=== PATIENT | female | born 1985 | race Caucasian/White ===

== ENCOUNTER → 2016-06-04 | Outpatient (CLI) | payer BC ==
[~2016-06-04] MED LIST: LEVO150T67 PO; LORA-441 PO; ULT50 PO
[2016-06-04 13:53] LABS: INR 1.52; PROTIME 18.4 Sec (12.2-14.2); PT RATIO 1.4
== END | disposition home or self-care (01) ==
LOC: LAB 12:57
PROVIDERS: ATTEND Internal Medicine
DX: D68.59 Other primary thrombophilia (principal)
CPT/HCPCS: 85610

== ENCOUNTER → 2016-06-04 | Outpatient (CLI) | payer BC ==
[2016-06-04 13:44] LABS: BASOPHILS % 0.6 % (0.0-2.0); EOSINOPHILS # 0.1 10^3/ul (0.0-0.5); EOSINOPHILS % 4.7 % (0.0-7.0); HEMATOCRIT 35.2 % (37.0-47.0); HEMOGLOBIN 11.8 g/dl (12.0-16.0); LYMPHOCYTES # 1.1 10^3/ul (0.8-2.9); LYMPHOCYTES % 38.1 % (15.0-51.0); MEAN CORPUSCULAR HEMOGLOBIN 28.8 pg (29.0-33.0); MEAN CORPUSCULAR HGB CONC 33.4 g/dl (32.0-37.0); MEAN CORPUSCULAR VOLUME 86.2 fl (82.0-101.0); MONOCYTE # 0.4 10^3/ul (0.3-0.9); MONOCYTES % 13.5 % (0.0-11.0); NEUTROPHIL # 1.2 10^3/ul (1.6-7.5); NEUTROPHILS % 43.1 % (39.0-77.0); PLATELET COUNT 181 10^3/UL (140-440); RED BLOOD COUNT 4.08 10^6/ul (4.20-5.40); RED CELL DISTRIBUTION WIDTH 15.2 % (11.5-14.5); UNCORRECTED WBC 2.9 10^3/ul (4.8-10.8); WHITE BLOOD COUNT 2.9 10^3/ul (4.8-10.8)
[2016-06-04 13:53] LABS: ALBUMIN 4.3 g/dl (3.3-4.9); CHLORIDE 102 mmol/L (97-110); CONDITION 1; LH ANALYZER COMMENTS 1
[2016-06-04 13:54] LABS: POTASSIUM 4.1 mmol/L (3.5-5.1); SODIUM 142 mmol/L (135-144)
[2016-06-04 13:59] LABS: ADD UMIC YES; URINE BILIRUBIN (Dip) NEGATIVE (NEGATIVE); URINE BLOOD (Dip) 3+ (NEGATIVE); URINE COLOR LT. YELLOW (YELLOW); URINE GLUCOSE (Dip) NEGATIVE (NEGATIVE); URINE KETONES (Dip) NEGATIVE (NEGATIVE); URINE LEUKOCYTE ESTERASE (Dip) NEGATIVE (NEGATIVE); URINE NITRITE (Dip) NEGATIVE (NEGATIVE); URINE TOTAL PROTEIN (Dip) NEGATIVE (NEGATIVE); URINE UROBILINOGEN (Dip) 0.2 E.U./dL (0.1-1.0)
[2016-06-04 14:04] LABS: COMPLEMENT C3 97 mg/dl (88-165)
[2016-06-04 14:11] LABS: SQUAMOUS EPITHELIAL CELL,UR OCCASIONAL; URINE RBCS 0-2 /HPF ([, 0])
[2016-06-04 14:33] LABS: C-REACTIVE PROTEIN 0.8 mg/dl (0.0-0.9)
[2016-06-04 14:35] LABS: CARBON DIOXIDE 25 mmol/L (21-31)
[2016-06-04 14:36] LABS: ALANINE AMINOTRANSFERASE 42 IU/L (13-69); ALBUMIN/GLOBULIN RATIO 0.72; ALKALINE PHOSPHATASE 85 IU/L (42-121); ANION GAP 19 (8-16); ASPARTATE AMINO TRANSFERASE 35 IU/L (15-46); BILIRUBIN,INDIRECT 0.1 mg/dl (0-1.1); BILIRUBIN,TOTAL 0.1 mg/dl (0.2-1.3); BLOOD UREA NITROGEN 7 mg/dl (7-20); CALCIUM 9.4 mg/dl (8.4-10.2); COMPLEMENT C4 < 8 mg/dl (14-44); CREATININE 0.51 mg/dl (0.44-1.00); GLUCOSE 91 mg/dl (70-220); TOTAL PROTEIN 10.2 g/dl (6.1-8.1)
[2016-06-05 11:56] LABS: MYELOPEROXIDASE ANTIBODY <1.0 AI; PROTEINASE-3 ANTIBODY <1.0 AI
== END | disposition home or self-care (01) ==
LOC: LAB 13:01
PROVIDERS: ATTEND Specialist
DX: M32.9 Systemic lupus erythematosus, unspecified (principal); B19.20 Unspecified viral hepatitis C without hepatic coma
CPT/HCPCS: 80053; 81001; 81003; 85025; 85651; 86021; 86140; 86160; 86226; 86235; 86430; 86803; 87340

== ENCOUNTER → 2016-06-16 | Outpatient (CLI) | payer BC ==
[~2016-06-16] MED LIST changes: +TRAM50TA2 PO; -ULT50 PO
[2016-06-16 09:33] LABS: BASOPHILS % 0.3 % (0.0-2.0); EOSINOPHILS % 0.2 % (0.0-7.0); HEMATOCRIT 35.2 % (37.0-47.0); HEMOGLOBIN 11.5 g/dl (12.0-16.0); LYMPHOCYTES # 1.1 10^3/ul (0.8-2.9); LYMPHOCYTES % 15.3 % (15.0-51.0); MEAN CORPUSCULAR HEMOGLOBIN 28.2 pg (29.0-33.0); MEAN CORPUSCULAR HGB CONC 32.7 g/dl (32.0-37.0); MEAN CORPUSCULAR VOLUME 86.4 fl (82.0-101.0); MEAN PLATELET VOLUME 8.5 fl (7.4-10.4); MONOCYTE # 0.3 10^3/ul (0.3-0.9); MONOCYTES % 4.3 % (0.0-11.0); NEUTROPHIL # 5.6 10^3/ul (1.6-7.5); NEUTROPHILS % 79.9 % (39.0-77.0); PLATELET COUNT 213 10^3/UL (140-440); RED BLOOD COUNT 4.07 10^6/ul (4.20-5.40); RED CELL DISTRIBUTION WIDTH 14.7 % (11.5-14.5)
[2016-06-16 09:41] LABS: CONDITION 1; LH ANALYZER COMMENTS 1
[2016-06-16 09:48] LABS: INR 3.34; PROTIME 34.4 Sec (12.2-14.2); PT RATIO 2.7
[2016-06-16 09:54] LABS: POTASSIUM 3.9 mmol/L (3.5-5.1)
[2016-06-16 09:55] LABS: CREATININE 0.52 mg/dl (0.44-1.00)
[2016-06-16 09:56] LABS: BILIRUBIN,INDIRECT 0.2 mg/dl (0-1.1); BILIRUBIN,TOTAL 0.2 mg/dl (0.2-1.3)
[2016-06-16 09:57] LABS: ALBUMIN/GLOBULIN RATIO 0.72; CALCIUM 9.1 mg/dl (8.4-10.2); TOTAL PROTEIN 9.5 g/dl (6.1-8.1)
[2016-06-16 09:59] LABS: C-REACTIVE PROTEIN 1.1 mg/dl (0.0-0.9)
[2016-06-16 10:01] LABS: ADD UMIC YES; URINE BILIRUBIN (Dip) NEGATIVE (NEGATIVE); URINE BLOOD (Dip) TRACE (NEGATIVE); URINE COLOR LT. YELLOW (YELLOW); URINE GLUCOSE (Dip) NEGATIVE (NEGATIVE); URINE KETONES (Dip) NEGATIVE (NEGATIVE); URINE LEUKOCYTE ESTERASE (Dip) 1+ (NEGATIVE); URINE NITRITE (Dip) NEGATIVE (NEGATIVE); URINE TOTAL PROTEIN (Dip) NEGATIVE (NEGATIVE); URINE UROBILINOGEN (Dip) 0.2 E.U./dL (0.1-1.0)
== END | disposition home or self-care (01) ==
LOC: LAB 08:59
PROVIDERS: ATTEND Specialist
DX: D68.59 Other primary thrombophilia (principal)
CPT/HCPCS: 80053; 81001; 81003; 83036; 85025; 85610; 85651; 86140

== ENCOUNTER → 2016-07-13 | Outpatient (CLI) | payer BC ==
[2016-07-13 12:08] LABS: BASOPHILS % 0.5 % (0.0-2.0); EOSINOPHILS % 0.8 % (0.0-7.0); HEMATOCRIT 34.6 % (37.0-47.0); HEMOGLOBIN 11.4 g/dl (12.0-16.0); LYMPHOCYTES # 1.1 10^3/ul (0.8-2.9); LYMPHOCYTES % 26.1 % (15.0-51.0); MEAN CORPUSCULAR HEMOGLOBIN 28.5 pg (29.0-33.0); MEAN CORPUSCULAR HGB CONC 33.1 g/dl (32.0-37.0); MEAN CORPUSCULAR VOLUME 86.1 fl (82.0-101.0); MEAN PLATELET VOLUME 9.4 fl (7.4-10.4); MONOCYTE # 0.7 10^3/ul (0.3-0.9); MONOCYTES % 16.2 % (0.0-11.0); NEUTROPHIL # 2.4 10^3/ul (1.6-7.5); NEUTROPHILS % 56.4 % (39.0-77.0); PLATELET COUNT 195 10^3/UL (140-440); RED BLOOD COUNT 4.01 10^6/ul (4.20-5.40); RED CELL DISTRIBUTION WIDTH 14.3 % (11.5-14.5); UNCORRECTED WBC 4.2 10^3/ul (4.8-10.8); WHITE BLOOD COUNT 4.2 10^3/ul (4.8-10.8)
[2016-07-13 12:09] LABS: ALBUMIN 3.5 g/dl (3.3-4.9); POTASSIUM 3.6 mmol/L (3.5-5.1)
[2016-07-13 12:11] LABS: CREATININE 0.63 mg/dl (0.44-1.00)
[2016-07-13 12:12] LABS: ALBUMIN/GLOBULIN RATIO 0.92; CALCIUM 8.8 mg/dl (8.4-10.2); CONDITION 1; LH ANALYZER COMMENTS 1; TOTAL PROTEIN 7.3 g/dl (6.1-8.1)
[2016-07-13 12:15] LABS: C-REACTIVE PROTEIN 0.8 mg/dl (0.0-0.9)
[2016-07-13 13:37] LABS: ADD UMIC YES; URINE BILIRUBIN (Dip) NEGATIVE (NEGATIVE); URINE BLOOD (Dip) TRACE (NEGATIVE); URINE COLOR LT. YELLOW (YELLOW); URINE GLUCOSE (Dip) NEGATIVE (NEGATIVE); URINE KETONES (Dip) NEGATIVE (NEGATIVE); URINE LEUKOCYTE ESTERASE (Dip) 1+ (NEGATIVE); URINE NITRITE (Dip) NEGATIVE (NEGATIVE); URINE TOTAL PROTEIN (Dip) NEGATIVE (NEGATIVE); URINE UROBILINOGEN (Dip) 0.2 E.U./dL (0.1-1.0)
[2016-07-13 13:54] LABS: BACTERIA,URINE FEW; URINE RBCS 0-2 /HPF (0)
== END | disposition home or self-care (01) ==
LOC: LAB 11:16
PROVIDERS: ATTEND Specialist
DX: M32.9 Systemic lupus erythematosus, unspecified (principal)
CPT/HCPCS: 80053; 81001; 81003; 83036; 85025; 85651; 86140

== ENCOUNTER → 2016-08-29 | Outpatient (CLI) | payer BC ==
[2016-08-29 12:16] LABS: ADD SCAN DIFF NO
[2016-08-29 12:26] LABS: BASOPHILS % 0.5 % (0.0-2.0); HEMATOCRIT 36.8 % (37.0-47.0); HEMOGLOBIN 11.3 g/dl (12.0-16.0); LYMPHOCYTES # 1.2 10^3/ul (0.8-2.9); MEAN CORPUSCULAR HEMOGLOBIN 26.6 pg (29.0-33.0); MEAN CORPUSCULAR HGB CONC 30.7 g/dl (32.0-37.0); MEAN CORPUSCULAR VOLUME 86.6 fl (82.0-101.0); MEAN PLATELET VOLUME 11.9 fl (7.4-10.4); MONOCYTE # 0.6 10^3/ul (0.3-0.9); MONOCYTES % 15.9 % (0.0-11.0); NEUTROPHILS % 51.3 % (39.0-77.0); PLATELET COUNT 190 10^3/UL (140-415); RED BLOOD COUNT 4.25 10^6/ul (4.20-5.40); RED CELL DISTRIBUTION WIDTH 14.8 % (11.5-14.5); WHITE BLOOD COUNT 3.9 10^3/ul (4.8-10.8)
[2016-08-29 12:35] LABS: ALBUMIN/GLOBULIN RATIO 0.88; BILIRUBIN,INDIRECT 0.1 mg/dl (0-1.1); BILIRUBIN,TOTAL 0.1 mg/dl (0.2-1.3); CALCIUM 8.6 mg/dl (8.4-10.2); CREATININE 0.56 mg/dl (0.44-1.00); POTASSIUM 3.2 mmol/L (3.5-5.1); TOTAL PROTEIN 8.5 g/dl (6.1-8.1)
[2016-08-29 13:03] LABS: ADD UMIC YES; URINE BILIRUBIN (Dip) NEGATIVE (NEGATIVE); URINE BLOOD (Dip) TRACE (NEGATIVE); URINE COLOR LT. YELLOW (YELLOW); URINE GLUCOSE (Dip) NEGATIVE (NEGATIVE); URINE KETONES (Dip) NEGATIVE (NEGATIVE); URINE LEUKOCYTE ESTERASE (Dip) NEGATIVE (NEGATIVE); URINE NITRITE (Dip) NEGATIVE (NEGATIVE); URINE TOTAL PROTEIN (Dip) NEGATIVE (NEGATIVE); URINE UROBILINOGEN (Dip) 0.2 E.U./dL (0.1-1.0)
[2016-08-29 13:20] LABS: URINE RBCS 0-2 /HPF (0)
== END | disposition home or self-care (01) ==
LOC: LAB 11:35
PROVIDERS: ATTEND Internal Medicine
DX: M32.9 Systemic lupus erythematosus, unspecified (principal)
CPT/HCPCS: 80053; 81001; 81003; 85025; 85651; 86140

== ENCOUNTER → 2016-10-22 | Outpatient (CLI) | payer BC ==
[2016-10-22 07:52] LABS: ADD SCAN DIFF NO
[2016-10-22 07:57] LABS: BASOPHILS % 0.2 % (0.0-2.0); EOSINOPHILS % 0.2 % (0.0-7.0); HEMATOCRIT 40.5 % (37.0-47.0); HEMOGLOBIN 12.6 g/dl (12.0-16.0); LYMPHOCYTES # 0.7 10^3/ul (0.8-2.9); LYMPHOCYTES % 18.2 % (15.0-51.0); MEAN CORPUSCULAR HEMOGLOBIN 25.8 pg (29.0-33.0); MEAN CORPUSCULAR HGB CONC 31.1 g/dl (32.0-37.0); MEAN PLATELET VOLUME 11.6 fl (7.4-10.4); MONOCYTE # 0.3 10^3/ul (0.3-0.9); MONOCYTES % 8.2 % (0.0-11.0); NEUTROPHIL # 2.9 10^3/ul (1.6-7.5); NEUTROPHILS % 73.2 % (39.0-77.0); PLATELET COUNT 243 10^3/UL (140-415); RED BLOOD COUNT 4.88 10^6/ul (4.20-5.40); RED CELL DISTRIBUTION WIDTH 16.3 % (11.5-14.5)
[2016-10-22 08:04] LABS: ADD UMIC YES; URINE BILIRUBIN (Dip) NEGATIVE (NEGATIVE); URINE BLOOD (Dip) TRACE (NEGATIVE); URINE COLOR LT. YELLOW (YELLOW); URINE GLUCOSE (Dip) NEGATIVE (NEGATIVE); URINE KETONES (Dip) NEGATIVE (NEGATIVE); URINE LEUKOCYTE ESTERASE (Dip) 1+ (NEGATIVE); URINE NITRITE (Dip) NEGATIVE (NEGATIVE); URINE TOTAL PROTEIN (Dip) NEGATIVE (NEGATIVE); URINE UROBILINOGEN (Dip) 0.2 E.U./dL (0.1-1.0)
[2016-10-22 08:08] LABS: ALBUMIN 4.4 g/dl (3.3-4.9)
[2016-10-22 08:11] LABS: BILIRUBIN,INDIRECT 0.3 mg/dl (0-1.1); BILIRUBIN,TOTAL 0.3 mg/dl (0.2-1.3); CREATININE 0.57 mg/dl (0.44-1.00)
[2016-10-22 08:12] LABS: ALBUMIN/GLOBULIN RATIO 0.93; TOTAL PROTEIN 9.1 g/dl (6.1-8.1)
[2016-10-22 08:54] LABS: BACTERIA,URINE FEW; URINE RBCS 0-2 /HPF (0)
== END | disposition home or self-care (01) ==
LOC: LAB 07:26
PROVIDERS: ATTEND Specialist
DX: M32.9 Systemic lupus erythematosus, unspecified (principal)
CPT/HCPCS: 80053; 81001; 85025; 85651; 86140

== ENCOUNTER → 2016-12-04 | Outpatient (CLI) | payer BC ==
[2016-12-04 11:24] LABS: INR 1.58; PT RATIO 1.5
[2016-12-04 11:57] LABS: THYROID STIMULATING HORMONE 0.998 MIU/L (0.465-4.680)
== END | disposition home or self-care (01) ==
LOC: LAB 10:25
PROVIDERS: ATTEND Internal Medicine
DX: E03.9 Hypothyroidism, unspecified (principal)
CPT/HCPCS: 84436; 84443; 85610

== ENCOUNTER → 2016-12-04 | Outpatient (CLI) | payer BC ==
[2016-12-04 10:54] LABS: ADD SCAN DIFF NO
[2016-12-04 11:09] LABS: BASOPHILS % 0.3 % (0.0-2.0); EOSINOPHILS % 0.8 % (0.0-7.0); HEMATOCRIT 39.3 % (37.0-47.0); HEMOGLOBIN 12.1 g/dl (12.0-16.0); LYMPHOCYTES # 1.3 10^3/ul (0.8-2.9); LYMPHOCYTES % 31.5 % (15.0-51.0); MEAN CORPUSCULAR HEMOGLOBIN 25.7 pg (29.0-33.0); MEAN CORPUSCULAR HGB CONC 30.8 g/dl (32.0-37.0); MEAN CORPUSCULAR VOLUME 83.4 fl (82.0-101.0); MEAN PLATELET VOLUME 11.3 fl (7.4-10.4); MONOCYTE # 0.6 10^3/ul (0.3-0.9); MONOCYTES % 14.9 % (0.0-11.0); NEUTROPHIL # 2.1 10^3/ul (1.6-7.5); PLATELET COUNT 228 10^3/UL (140-415); RED BLOOD COUNT 4.71 10^6/ul (4.20-5.40); RED CELL DISTRIBUTION WIDTH 16.3 % (11.5-14.5)
[2016-12-04 11:30] LABS: C-REACTIVE PROTEIN 0.7 mg/dl (0.0-0.9)
[2016-12-04 12:10] LABS: COMPLEMENT C3 92 mg/dl (88-165)
[2016-12-04 12:21] LABS: COMPLEMENT C4 < 8 mg/dl (14-44)
[2016-12-04 13:23] LABS: ADD UMIC YES; UR ASCORBIC ACID NEGATIVE (NEGATIVE); UR BILIRUBIN (Dip) NEGATIVE (NEGATIVE); UR BLOOD (Dip) NEGATIVE (NEGATIVE); UR CLARITY CLEAR (CLEAR); UR COLOR YELLOW (YELLOW); UR GLUCOSE (Dip) NEGATIVE (NEGATIVE); UR KETONES (Dip) NEGATIVE (NEGATIVE); UR LEUKOCYTE ESTERASE (Dip) TRACE Leu/ul (NEGATIVE); UR NITRITE (Dip) NEGATIVE (NEGATIVE); UR RBC 0 /HPF (0-5); UR SPECIFIC GRAVITY (Dip) 1.008 (1.003-1.030); UR TOTAL PROTEIN (Dip) NEGATIVE (NEGATIVE); UR UROBILINOGEN (Dip) NEGATIVE (NEGATIVE)
== END | disposition home or self-care (01) ==
LOC: LAB 10:30
PROVIDERS: ATTEND Internal Medicine Rheumatology
DX: M32.9 Systemic lupus erythematosus, unspecified (principal)
CPT/HCPCS: 81001; 85025; 85651; 86140; 86160; 87086

== ENCOUNTER → 2016-12-29 | Outpatient (CLI) | payer BC ==
[2016-12-29 08:48] LABS: BASOPHILS % 0.5 % (0.0-2.0); EOSINOPHILS % 0.8 % (0.0-7.0); HEMATOCRIT 39.6 % (37.0-47.0); HEMOGLOBIN 12.7 g/dl (12.0-16.0); LYMPHOCYTES # 0.9 10^3/ul (0.8-2.9); LYMPHOCYTES % 23.6 % (15.0-51.0); MEAN CORPUSCULAR HEMOGLOBIN 26.8 pg (29.0-33.0); MEAN CORPUSCULAR HGB CONC 32.1 g/dl (32.0-37.0); MEAN CORPUSCULAR VOLUME 83.7 fl (82.0-101.0); MEAN PLATELET VOLUME 11.9 fl (7.4-10.4); MONOCYTE # 0.5 10^3/ul (0.3-0.9); MONOCYTES % 12.8 % (0.0-11.0); NEUTROPHIL # 2.4 10^3/ul (1.6-7.5); PLATELET COUNT 197 10^3/UL (140-415); RED BLOOD COUNT 4.73 10^6/ul (4.20-5.40); RED CELL DISTRIBUTION WIDTH 16.3 % (11.5-14.5); WHITE BLOOD COUNT 3.9 10^3/ul (4.8-10.8)
[2016-12-29 09:06] LABS: INR 1.53; PROTIME 18.5 Sec (12.2-14.2); PT RATIO 1.4
[2016-12-29 09:09] LABS: ALBUMIN 4.4 g/dl (3.3-4.9); ALBUMIN/GLOBULIN RATIO 0.89; BILIRUBIN,INDIRECT 0.1 mg/dl (0-1.1); BILIRUBIN,TOTAL 0.1 mg/dl (0.2-1.3); CALCIUM 9.3 mg/dl (8.4-10.2); CREATININE 0.6 mg/dl (0.44-1.00); POTASSIUM 4.1 mmol/L (3.5-5.1); TOTAL PROTEIN 9.3 g/dl (6.1-8.1)
== END | disposition home or self-care (01) ==
LOC: LAB 07:38
PROVIDERS: ATTEND Internal Medicine
DX: D68.59 Other primary thrombophilia (principal); L03.113 Cellulitis of right upper limb
CPT/HCPCS: 80053; 85025; 85610

== ENCOUNTER → 2017-03-03 | Outpatient (CLI) | payer BC ==
[2017-03-03 10:47] LABS: ABNORMAL IP MESSAGE 1; EOSINOPHILS # 0.1 10^3/ul (0.0-0.5); EOSINOPHILS % 2.2 % (0.0-7.0); HEMATOCRIT 39.4 % (37.0-47.0); HEMOGLOBIN 12.5 g/dl (12.0-16.0); LYMPHOCYTES # 0.9 10^3/ul (0.8-2.9); LYMPHOCYTES % 39.5 % (15.0-51.0); MEAN CORPUSCULAR HGB CONC 31.7 g/dl (32.0-37.0); MEAN CORPUSCULAR VOLUME 88.3 fl (82.0-101.0); MEAN PLATELET VOLUME 10.7 fl (7.4-10.4); MONOCYTE # 0.5 10^3/ul (0.3-0.9); MONOCYTES % 22.9 % (0.0-11.0); NEUTROPHIL # 0.8 10^3/ul (1.6-7.5); PLATELET COUNT 158 10^3/UL (140-415); RED BLOOD COUNT 4.46 10^6/ul (4.20-5.40); RED CELL DISTRIBUTION WIDTH 15.2 % (11.5-14.5); WHITE BLOOD COUNT 2.2 10^3/ul (4.8-10.8)
[2017-03-03 11:08] LABS: ADD UMIC YES; UR ASCORBIC ACID NEGATIVE (NEGATIVE); UR BILIRUBIN (Dip) NEGATIVE (NEGATIVE); UR BLOOD (Dip) 1+ mg/dL (NEGATIVE); UR CLARITY CLEAR (CLEAR); UR COLOR STRAW (YELLOW); UR GLUCOSE (Dip) NEGATIVE (NEGATIVE); UR KETONES (Dip) NEGATIVE (NEGATIVE); UR LEUKOCYTE ESTERASE (Dip) NEGATIVE Leu/ul (NEGATIVE); UR NITRITE (Dip) NEGATIVE (NEGATIVE); UR RBC 0 /HPF (0-5); UR SPECIFIC GRAVITY (Dip) 1.004 (1.003-1.030); UR TOTAL PROTEIN (Dip) NEGATIVE (NEGATIVE); UR UROBILINOGEN (Dip) NEGATIVE (NEGATIVE)
[2017-03-03 11:12] LABS: POSITIVE DIFF @See below
[2017-03-03 12:10] LABS: ALANINE AMINOTRANSFERASE 30 IU/L (13-69); ALBUMIN 4.1 g/dl (3.3-4.9); ALBUMIN/GLOBULIN RATIO 0.87; ALKALINE PHOSPHATASE 60 IU/L (42-121); ANION GAP 14 (8-16); ASPARTATE AMINO TRANSFERASE 21 IU/L (15-46); BILIRUBIN,INDIRECT 0.2 mg/dl (0-1.1); BILIRUBIN,TOTAL 0.2 mg/dl (0.2-1.3); BLOOD UREA NITROGEN 9 mg/dl (7-20); C-REACTIVE PROTEIN 0.6 mg/dl (0.0-0.9); CALCIUM 8.9 mg/dl (8.4-10.2); CARBON DIOXIDE 24 mmol/L (21-31); CHLORIDE 103 mmol/L (97-110); CREATININE 0.61 mg/dl (0.44-1.00); GLUCOSE 78 mg/dl (70-220); POTASSIUM 3.7 mmol/L (3.5-5.1); SODIUM 137 mmol/L (135-144); TOTAL PROTEIN 8.8 g/dl (6.1-8.1)
[2017-03-03 12:34] LABS: COMPLEMENT C3 87 mg/dl (88-165)
[2017-03-03 12:49] LABS: COMPLEMENT C4 < 8 mg/dl (14-44)
== END | disposition home or self-care (01) ==
LOC: LAB 07:59
PROVIDERS: ATTEND Specialist
DX: M32.9 Systemic lupus erythematosus, unspecified (principal)
CPT/HCPCS: 80053; 81001; 85025; 85651; 86140; 86160

== ENCOUNTER → 2017-03-03 | Outpatient (CLI) | payer BC ==
[2017-03-03 11:32] LABS: INR 1.88; PROTIME 21.8 Sec (12.2-14.2); PT RATIO 1.7
== END | disposition home or self-care (01) ==
LOC: LAB 07:54
PROVIDERS: ATTEND Internal Medicine
DX: D68.59 Other primary thrombophilia (principal)
CPT/HCPCS: 85610

== ENCOUNTER → 2017-05-09 | Outpatient (CLI) | payer BC ==
[2017-05-09 09:13] LABS: BASOPHILS % 0.7 % (0.0-2.0); EOSINOPHILS # 0.1 10^3/ul (0.0-0.5); EOSINOPHILS % 2.5 % (0.0-7.0); HEMATOCRIT 41.3 % (37.0-47.0); HEMOGLOBIN 13.7 g/dl (12.0-16.0); LYMPHOCYTES # 0.9 10^3/ul (0.8-2.9); LYMPHOCYTES % 30.9 % (15.0-51.0); MEAN CORPUSCULAR HGB CONC 33.2 g/dl (32.0-37.0); MEAN CORPUSCULAR VOLUME 87.3 fl (82.0-101.0); MEAN PLATELET VOLUME 11.9 fl (7.4-10.4); MONOCYTE # 0.4 10^3/ul (0.3-0.9); MONOCYTES % 14.4 % (0.0-11.0); NEUTROPHIL # 1.4 10^3/ul (1.6-7.5); NEUTROPHILS % 51.1 % (39.0-77.0); PLATELET COUNT 142 10^3/UL (140-415); RED BLOOD COUNT 4.73 10^6/ul (4.20-5.40); RED CELL DISTRIBUTION WIDTH 13.5 % (11.5-14.5); WHITE BLOOD COUNT 2.8 10^3/ul (4.8-10.8)
[2017-05-09 09:34] LABS: INR 1.03; PROTIME 13.6 Sec (11.9-14.9); PT RATIO 1.1
[2017-05-09 09:42] LABS: ALBUMIN 4.1 g/dl (3.3-4.9); ALBUMIN/GLOBULIN RATIO 0.91; BILIRUBIN,INDIRECT 0.3 mg/dl (0-1.1); BILIRUBIN,TOTAL 0.3 mg/dl (0.2-1.3); CALCIUM 9.2 mg/dl (8.4-10.2); CHOL/HDL RATIO 2.6 RATIO; CREATININE 0.68 mg/dl (0.44-1.00); POTASSIUM 3.8 mmol/L (3.5-5.1); TOTAL PROTEIN 8.6 g/dl (6.1-8.1)
[2017-05-09 10:42] LABS: THYROID STIMULATING HORMONE 2.37 MIU/L (0.465-4.680)
== END | disposition home or self-care (01) ==
LOC: LAB 08:07
PROVIDERS: ATTEND Internal Medicine
DX: E78.5 Hyperlipidemia, unspecified (principal); D64.9 Anemia, unspecified; D68.59 Other primary thrombophilia; R73.03 Prediabetes
CPT/HCPCS: 80053; 80061; 83036; 84436; 84443; 85025; 85610; 85651

== ENCOUNTER → 2017-08-15 | Outpatient (CLI) | END | disposition home or self-care (01) ==

== ENCOUNTER → 2017-11-13 | Outpatient (CLI) | END | disposition home or self-care (01) ==

== ENCOUNTER 2017-12-18 13:40 | Inpatient (IN) | END 2017-12-19 17:52 | disposition home or self-care (01) | DRG 781 ==

== ENCOUNTER → 2017-12-22 | Outpatient (CLI) | END | disposition home or self-care (01) ==

== ENCOUNTER 2017-12-31 14:52 | Inpatient (IN) | END 2018-01-03 18:36 | disposition home or self-care (01) | DRG 775 ==

== ENCOUNTER → 2018-01-09 | Outpatient (CLI) | END | disposition home or self-care (01) ==

== ENCOUNTER → 2018-03-02 | Outpatient (CLI) | END | disposition home or self-care (01) ==

== ENCOUNTER → 2018-03-24 | Outpatient (CLI) | END | disposition home or self-care (01) ==

== ENCOUNTER → 2018-08-07 | Outpatient (CLI) | payer BC ==
[~2018-08-07] MED LIST changes: +ENOX60DI13 SQ; -LEVO150T67 PO; +LEVO175T2 PO; -LORA-441 PO; +PNV11TAB PO; +PRED5SOL PO; -TRAM50TA2 PO
== END | disposition home or self-care (01) ==
LOC: LAB 07:27
PROVIDERS: ATTEND Internal Medicine
DX: D68.59 Other primary thrombophilia (principal)
CPT/HCPCS: 85025; 85610; 86706; 86735; 86762; 86765; 86787

== ENCOUNTER → 2018-09-14 | Outpatient (CLI) | payer BC | END | disposition home or self-care (01) | LOC: LAB 11:08 | PROVIDERS: ATTEND Internal Medicine | DX: D68.59 Other primary thrombophilia (principal) | CPT/HCPCS: 85025; 85610 ==

== ENCOUNTER → 2018-10-26 | Outpatient (CLI) | payer BC ==
[~2018-10-26] MED LIST changes: +ACET325T33 PO; +IBUP-1561 PO; +PROM5SYR2 PO
== END | disposition home or self-care (01) ==
LOC: RAD 15:39
PROVIDERS: ATTEND Internal Medicine
DX: J20.9 Acute bronchitis, unspecified (principal)
CPT/HCPCS: 71046

== ENCOUNTER 2018-10-27 02:44 | Emergency (ER) | payer BC ==
[~2018-10-27] VITALS: Ht 149.9 cm; Wt 58.7 kg
[~2018-10-27 02:44] MED LIST changes: -ACET325T33 PO; -IBUP-1561 PO; -PROM5SYR2 PO
[2018-10-27 02:50] VITALS: Ht 149.9 cm; Wt 58.7 kg
--- NOTE | 2018-10-27 03:29 | ERD ---
ER Documentation Chief Complaint Chief Complaint pt c/o fever, chills, and weakness x 4 days HPI 33-year-old female, with history of lupus, on prednisone, presents the emergency department, complaining of 4 days with tactile fever, associated with cough. The patient was seen by her primary doctor yesterday and was started on Bactrim. She denies shortness of breath, no chest pain, no palpitations. ROS All systems reviewed and are negative except as per history of present illness. Medications Home Meds Active Scripts Promethazine HCl/Codeine (Prometh-Codein 6.25-10 mg/5 ml) 5 Ml Syrup, 5 ML PO TID for 5 Days Prov:FOUZIA LEWIS MD 10/27/18 Enoxaparin Sodium* (Lovenox*) 60 Mg/0.6 Ml Disp.syrin, 60 MG SQ Q24 for 30 Days, SYR Prov:JESSE ARELLANO MD 01/03/18 Reported Medications Levothyroxine Sodium* (Synthroid*) 175 Mcg Tablet, 175 MCG PO BEFORE BREAKFAST, #30 TAB 12/18/17 Prednisone* (Prednisone* Liq) 5 Mg/5 Ml Solution, 4 MG PO BID, ML 12/18/17 [id number] ( 19) 1 Each Tablet, 1 TAB PO DAILY, TAB 12/18/17 Allergies Allergies: Coded Allergies: No Known Allergy (Unverified , 02/06/16) PMhx/Soc History of Surgery: Yes (NOSE SURGERY) Anesthesia Reaction: No Hx Neurological Disorder: Yes (STROKE 2008) Hx Respiratory Disorders: No Hx Cardiac Disorders: No Hx Psychiatric Problems: No Hx Miscellaneous Medical Probl: Yes (LUPUS, HYPOTHYROID) Hx Alcohol Use: No Hx Substance Use: No Hx Tobacco Use: No Smoking Status: Never smoker Physical Exam Vitals Vital Signs Date Temp Pulse Resp B/P (MAP) Pulse Ox O2 O2 Flow FiO2 Time Delivery Rate 10/27/18 99.8 131 20 129/88 98 02:50 (102) Physical Exam Const: No acute distress Head: Atraumatic Eyes: Normal Conjunctiva ENT: Normal External Ears, Nose and Mouth. Neck: Full range of motion. No meningismus. Resp: Clear to auscultation bilaterally Cardio: Regular rate and rhythm, no murmurs Abd: Soft, non tender, non distended. Normal bowel sounds Skin: No petechiae or rashes Back: No midline or flank tenderness Ext: No cyanosis, or edema Neur: Awake and alert Psych: Normal Mood and Affect Result Diagram: 10/27/18 0353 10/27/18 0353 Results 24 hrs Laboratory Tests Test 10/27/18 03:53 White Blood Count 3.7 10^3/ul Red Blood Count 4.35 10^6/ul Hemoglobin 12.7 g/dl Hematocrit 38.5 % Mean Corpuscular Volume 88.5 fl Mean Corpuscular Hemoglobin 29.2 pg Mean Corpuscular Hemoglobin Concent 33.0 g/dl Red Cell Distribution Width 13.0 % Platelet Count 175 10^3/UL Mean Platelet Volume 10.8 fl Immature Granulocytes % 0.300 % Neutrophils % 82.5 % Lymphocytes % 6.7 % Monocytes % 7.0 % Eosinophils % 3.5 % Basophils % 0.0 % Nucleated Red Blood Cells % 0.0 /100WBC Immature Granulocytes # 0.010 10^3/ul Neutrophils # 3.1 10^3/ul Lymphocytes # 0.3 10^3/ul Monocytes # 0.3 10^3/ul Eosinophils # 0.1 10^3/ul Basophils # 0.0 10^3/ul Nucleated Red Blood Cells # 0.0 10^3/ul Prothrombin Time 13.6 Sec Prothrombin Time Ratio 1.1 INR International Normalized Ratio 1.03 Activated Partial Thromboplast Time 30.6 Sec D-Dimer 379.07 ng/ml D-Dimer Comment Sodium Level 141 mmol/L Potassium Level 4.0 mmol/L Chloride Level 109 mmol/L Carbon Dioxide Level 21 mmol/L Anion Gap 11 Blood Urea Nitrogen 11 mg/dl Creatinine 0.68 mg/dl Est Glomerular Filtrat Rate mL/min > 60 mL/min Glucose Level 100 mg/dl Calcium Level 9.3 mg/dl Total Bilirubin 0.3 mg/dl Direct Bilirubin 0.00 mg/dl Indirect Bilirubin 0.3 mg/dl Aspartate Amino Transf (AST/SGOT) 23 IU/L Alanine Aminotransferase (ALT/SGPT) 14 IU/L Alkaline Phosphatase 68 IU/L Troponin I < 0.012 ng/ml Total Protein 9.5 g/dl Albumin 4.2 g/dl Globulin 5.30 g/dl Albumin/Globulin Ratio 0.79 Lipase 186 U/L EKG read by me: Rate/Rhythm: Regular rate and rhythm at a rate of 116 Intervals: Normal No acute ST changes. No T wave inversion Impression: No evidence of acute ischemia or arrhythmia Procedures/MDM Vital signs stable. Differential diagnosis include but not limited to: URI, PNA, chostochondritis, GERD, musculoskeletal injury, less likely PE, pericarditis, endocarditis. Pertinent Data: 12 Lead ECG: Sinus rhythm, no ST changes, normal T wave, normal intervals Radiology: Chest x-rays: Normal D-dimer: Normal Physical examination and clinical presentation consistent most likely with cough possible allergic versus infection. During the ED course the patient remained stable, no new complaints. Results and clinical impression discussed with patient who agrees with management. The patient is stable to be treated outpatient and will be discharged home with a Rx for promethazine/codeine; some side effects of prescribed medications (headache, rash, nausea, vomiting, diarrhea, drowsiness, habituation, bleeding, hypertension, interactions with other medications) were reviewed. The patient was informed that the evaluation in the emergency department has been done to rule out an acute emergency, therefore, chronic conditions like malignancy or autoimmune diseases have not been evaluated; therefore, the patient was instructed to follow up with the primary care provider in the next 48h. If symptoms persist, worsen or new symptoms develop, then patient should return to the ED immediately. Instructions explained and given directly by me to the patient with acknowledgment and demonstrated understanding. Disclaimer: Inadvertent spelling and grammatical errors are likely due to EHR/dictation software use and do not reflect on the overall quality of patient care. Also, please note that the electronic time recorded on this note does not necessarily reflect the actual time of the patient encounter. Departure Diagnosis: Primary Impression: Cough Condition: Stable Additional Instructions: Thank you very much for allowing us to participate in your care. Your health and safety is our top priority at [facility]. The evaluation in the emergency department has been done to rule out an acute emergency. chronic conditions like malignancy or other diseases have not been evaluated; therefore, you need to follow up with a primary care provider in the next 48h. If symptoms persist, worsen or new symptoms develop, then patient should return to the ED immediately. Call your primary care doctor TOMORROW for an appointment during the next 2-4 days and bring all the information provided. Have prescriptions filled and follow precisely the directions on the label. If the symptoms get worse and your provider is unavailable, return to the Emergency Department immediately. FOUZIA LEWIS MD Oct 27, 2018 03:29
[2018-10-27] MEDS ORDERED: PROM5SYR2 PO (05:03)
[2018-10-27] MEDS ORDERED: ACET325T33 PO (05:23)
[2018-10-27] MEDS ORDERED: IBUP-1561 PO (05:23)
[2018-10-27 05:36] VITALS: BP 116/79; PULSE 129; RESP 20
== END 2018-10-27 05:37 | disposition home or self-care (01) ==
LOC: FTE 02:44
DX: R05 Cough (principal); E03.9 Hypothyroidism, unspecified; Z86.73 Personal history of transient ischemic attack (TIA), and cerebral infarction without residual deficits
CPT/HCPCS: 80053; 83690; 84484; 85025; 85378; 85610; 85730; 93005

== ENCOUNTER → 2018-10-29 | Outpatient (CLI) | payer BC ==
[~2018-10-29] MED LIST changes: +ACET325T33 PO; +IBUP-1561 PO; +PROM5SYR2 PO
== END | disposition home or self-care (01) ==
LOC: LAB 13:04
PROVIDERS: ATTEND Internal Medicine Rheumatology
DX: M32.9 Systemic lupus erythematosus, unspecified (principal)
CPT/HCPCS: 80053; 81001; 85025; 85651; 86140; 86160; 86226; 87086

== ENCOUNTER → 2018-11-27 | Outpatient (CLI) | payer BC | END | disposition home or self-care (01) | LOC: LAB 15:45 | PROVIDERS: ATTEND Internal Medicine | DX: J20.9 Acute bronchitis, unspecified (principal); D68.59 Other primary thrombophilia | CPT/HCPCS: 80048; 85025; 85610; 86635 ==

== ENCOUNTER → 2018-12-16 | Outpatient (CLI) | payer BC | END | disposition home or self-care (01) | LOC: PUL 11:19 | PROVIDERS: ATTEND Internal Medicine | DX: J45.909 Unspecified asthma, uncomplicated (principal) | CPT/HCPCS: 94010; 94726; 94729 ==